=== PATIENT | male | born 1995 | race Caucasian/White ===

== ENCOUNTER 2021-03-22 01:57 | Emergency (ER) | payer OTHER ==
[2021-03-22 02:07] VITALS: TEMP 98.1; BMI 24.3
[2021-03-22] MEDS ORDERED: methylPREDNISolone NA SUCC 125 MG/2 ML VIAL IVPUSH ONE (02:44)
[2021-03-22] MEDS ORDERED: ALBUTEROL SO4 2.5/IPRATROPIUM 0.5 INH SOL 3 ML VIAL.NEB. NEB ONE ×2 (02:44→02:46)
[2021-03-22] MEDS ORDERED: ALBUTEROL SO4 HFA INHALER IH ONE ×2 (02:45→04:40)
[2021-03-22] MEDS ORDERED: methylPREDNISolone NA SUCC 125 MG/2 ML VIAL ONE (02:46)
[2021-03-22 04:52] VITALS: BP 144/80; PULSE 86
== END 2021-03-22 04:52 | disposition home or self-care (01) ==
LOC: JER 01:57
PROC: 3E0F7GC Introduction of Other Therapeutic Substance into Respiratory Tract, Via Natural or Artificial Opening (ICD-10-PCS; principal; 2021-03-22)
PROC: 3E033GC Introduction of Other Therapeutic Substance into Peripheral Vein, Percutaneous Approach (ICD-10-PCS; 2021-03-22)
DX: J98.01 Acute bronchospasm (principal)
CPT/HCPCS: 71045-TC-FY; 99284-25